=== PATIENT | female | born 2005 | race Caucasian/White ===

== ENCOUNTER 2024-09-13 12:01 | Emergency (ER) | payer OTHER, SELFPAY ==
[2024-09-13 12:18] VITALS: BP 108/74; PULSE 85; RESP 18; TEMP 36.7; O2SAT 100
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
== END 2024-09-13 12:50 | disposition home or self-care (01) ==
PROVIDERS: Emergency Provider Nurse Practitioner Family; PCP Family Medicine
DX: Z04.1 Encounter for examination and observation following transport accident (principal); M25.552 Pain in left hip; S40.012A Contusion of left shoulder, initial encounter; V47.5XXA Car driver injured in collision with fixed or stationary object in traffic accident, initial encounter
CPT/HCPCS: 99203; G0463